=== PATIENT | female | born 1960 | race Caucasian/White ===

== ENCOUNTER 2018-06-21 12:53 | Day surgery (SDC) | payer BC ==
[2018-06-21] MEDS ORDERED: LIDOCAINE 2% MDV (20MG/ML) 20ML VIAL IV ONE (12:54)
[2018-06-21] MEDS ORDERED: MIDAZOLAM HCL 2MG/2ML VIAL IV ONE (12:54)
[2018-06-21] MEDS ORDERED: PROPOFOL 10 MG/ML VIAL IV ONE (12:54)
--- NOTE | 2018-06-22 10:10 | Operative Note ---
DATE OF SURGERY: 06/21/2018 OPERATION: COLONOSCOPY to the cecum with cold biopsy forceps polypectomy x1. INDICATION: Family history of colon cancer (mother). The patient also with recent episodes of rectal bleeding. ANESTHESIA: Intravenous sedation was administered by the department of anesthesiology and included Diprivan titrated to effect. PROCEDURE: Following informed consent from this alert individual including a discussion of the risks and benefits of the procedure and an opportunity for the patient to ask questions, the patient was in the left lateral decubitus position. A digital rectal examination was performed. No masses were noted. No abnormalities were detected. Following this, the Olympus [id number] video colonoscope was inserted into the rectum without resistance. The rectal mucosa had a normal appearance with normal folds and distensibility. The sigmoid colon had a few scattered diverticula noted. The colonoscope was further advanced up through the remainder of the bowel to the level of the cecum without much difficulty. Throughout the remainder of the bowel the mucosa appeared normal, the folds were normal, and the bowel was fairly well distensible. The cecum was defined by noting the appendiceal orifice and ileocecal valve. The colon preparation was good. From the base of the cecum, the colonoscope was then slowly withdrawn. The right colon and transverse colon were endoscopically normal. Descending colon likewise was free from mucosal changes. The colonoscope was then withdrawn back into the sigmoid colon where a few scattered diverticula were noted. It was withdrawn further into the rectum where a diminutive 3 mm polyp was removed from the proximal rectum with biopsy forceps. Retroflexion in the rectum then demonstrated what appeared to be a moderately size inflamed internal hemorrhoid. The tissue was friable. The colonoscope was then straightened and removed. The patient tolerated the procedure well and was returned to the recovery area in stable condition. IMPRESSION: 1. A 3 mm diminutive rectal polyp removed with biopsy forceps. 2. Mild sigmoid diverticulosis. 3. Probable inflamed friable moderate-size internal hemorrhoid although this is not perfectly clear. RECOMMENDATIONS: At this point, I would like the patient to see Colorectal Surgery for further evaluation of the probable inflamed internal hemorrhoid. Followup will also be with Dr. Yuriy Perez. She should have recheck colonoscopy in 5 years' time pending pathology. As always, thank you for allowing me to participate in the care of your patient. CC: Dr. Spencer Perez, DO [facility]
== END 2018-06-21 15:12 | disposition home or self-care (01) ==
LOC: HOP 12:53
PROVIDERS: ATTEND Internal Medicine Gastroenterology
DX: K62.5 Hemorrhage of anus and rectum (principal); Z80.0 Family history of malignant neoplasm of digestive organs; K62.1 Rectal polyp; K57.30 Diverticulosis of large intestine without perforation or abscess without bleeding; K64.8 Other hemorrhoids